=== PATIENT | female | born 1945 | race Caucasian/White ===

== ENCOUNTER 2022-04-25 06:21 | Day surgery (SDC) | payer BC ==
[~2022-04-25] VITALS: Ht 154.9 cm; Wt 90.7 kg
[2022-04-25] MEDS ORDERED: fentaNYL CITRATE/PF 100 MCG/2 ML AMP ONE (07:03)
[2022-04-25] MEDS ORDERED: MIDAZOLAM HCL 5 MG/5 ML VIAL ONE (07:04)
[2022-04-25] MEDS ORDERED: BENZOCAINE 20% 0.5mL UD SPRAY MM ONE ×2 (08:36→11:59)
[2022-04-25 09:38] VITALS: BP_SYST 113
== END 2022-04-25 11:15 | disposition home or self-care (01) ==
LOC: SDS 06:21
PROVIDERS: ATTEND Internal Medicine
DX: R14.0 Abdominal distension (gaseous) (principal); D64.9 Anemia, unspecified; K57.30 Diverticulosis of large intestine without perforation or abscess without bleeding; K64.8 Other hemorrhoids; K29.70 Gastritis, unspecified, without bleeding; Z20.822 Contact with and (suspected) exposure to COVID-19
CPT/HCPCS: 43239; 45378; 87426; 36415; 88305; 88312; 88313; 99152; 99153; G0378; J2250; J3010